=== PATIENT | male | born 1980 | race Caucasian/White ===

== ENCOUNTER 2019-11-25 16:12 | Emergency (ER) | payer SELFPAY ==
[2019-11-25 16:18] VITALS: BP 142/87; PULSE 86; RESP 16; TEMP 36.6; O2SAT 99; BMI 22.5
--- NOTE | 2019-11-25 16:37 | CTR_ITS ---
PROCEDURE INFORMATION: Exam: CT Maxillofacial Without Contrast Exam date and time: 11/25/2019 5:02 PM Age: 39 years old Clinical indication: Face pain; Additional info: Maxiallry , right pain TECHNIQUE: Imaging protocol: Computed tomography images of the face without contrast. Total DLP: 577.11 mGy-cm Radiation optimization: All CT scans at this facility use at least one of these dose optimization techniques: automated exposure control; mA and/or kV adjustment per patient size (includes targeted exams where dose is matched to clinical indication); or iterative reconstruction. COMPARISON: No relevant prior studies available. FINDINGS: Orbits: Orbits are normal. Globes are unremarkable. Sinuses: Normal. No air-fluid levels. Bones/joints: Left nasal septal deviation. Dental: Numerous missing maxillary teeth and dental caries. Numerous periapical (radicular) cysts. No visible associated soft tissue swelling or periosteal abscess. Cannot exclude alveolitis. Soft tissues: Left maxillary sinus inclusion cyst versus mucosal polyp dimensions 21 mm x [address]/CT sinus wo con* [id number] IMPRESSION: 1. Numerous missing maxillary teeth and dental caries. 2. Numerous periapical cysts. 3. Cannot exclude maxillary alveolitis. 4. Left maxillary sinus inclusion cyst versus mucosal polyp. 5. No visible active paranasal sinus disease. Radiation Dose CTDIVOL = (mGy): DLP = 577.11 (mGy-cm)
--- NOTE | 2019-11-25 16:38 | W.ED.GENADLT ---
Documented by User: RK Ledezma 11/25/19 16:40 HPI - General Adult General: Chief complaint: Headache Stated complaint: throwing up Time Seen by Provider: 11/25/19 16:28 History of Present Illness: HPI narrative: Patient with a history of migraines. Has had a headache for the last 6 weeks. Does not respond to Tylenol or Excedrin Migraine. Wakes up with a headache goes to bed with a headache. Also has maxillary tenderness on that right side where his headache is. Has multiple dental caries teeth are were down does have vomiting the last week or 2 with diarrhea also at times MD complaint: Headache Onset (ago): week(s) Location: right Radiation: non-radiation Severity: moderate Severity scale (1-10): 5 Quality: aching Pain Consistency: intermittent Relieving factors: none Exacerbating factors: none Associated symptoms: Reports headache(s) (History of migraines), nausea, vomiting and other (Sinus pain); Deny chest pain, dyspnea or rash Review of Systems Const: Denies: fever, chills or body aches Eyes: Denies: change in vision or blurry vision ENMT: Denies: throat pain or nasal congestion Card: Denies: chest pain or shortness of breath on exertion Resp: Denies: shortness of breath, productive cough or non-productive cough GI: Reports: nausea and vomiting : Denies: difficulty urinating Musc: Denies: extremity pain Skin/Breast: Denies: rash Neuro: Reports: headache (History of migraines) Psych: Denies: anxiety or depression Vu/Lymph: Denies: easy bruising PFSH ED PFSH: Social History Smoking and tobacco status: current every day smoker Physical Exam Const: COMMON NORMALS: no apparent distress, average body habitus and oriented x3 HENMT: COMMON NORMALS: normocephalic, external ears normal and TM's normal bilaterally HEAD & SCALP: normal to inspection and normocephalic FACE & SINUS: other (Right-sided maxillary tenderness) EXTERNAL EAR: Yes external ears normal TYMPANIC MEMBRANE: TM's normal bilaterally MOUTH: other (Teeth are wore down) Eye: COMMON NORMALS: conjunctivae normal GENERAL EYE: normal appearance of both eyes CONJUNCTIVA: Yes conjunctivae normal Neck/C-Spine: COMMON NORMALS: no JVD Chest: COMMONS NORMALS: inspection of chest normal Resp: COMMON NORMALS: normal respiratory effort and clear to auscultation bilaterally AUSCULTATION: clear to auscultation bilaterally Cardio: COMMON NORMALS: no JVD, regular rate and regular rhythm RATE: regular rate RHYTHM: regular rhythm GI: COMMON NORMALS: normal to inspection, nondistended, normoactive bowel sounds Extremity: COMMON NORMALS: normal to inspection and full ROM Neuro: COMMON NORMALS: oriented x3 Course Vital Signs: Vital signs: Vital Signs Temperature 97.9 F 11/25/19 16:18 Pulse Rate 86 11/25/19 16:18 Respiratory Rate 16 11/25/19 16:18 Blood Pressure 142/87 11/25/19 16:18 Pulse Oximetry 99 11/25/19 16:18 [facility] - General Adult Lab Data: Labs: Lab Results 11/25/19 11/25/19 Range/Units 16:56 16:56 WBC 12.6 H (4.0-10.0) 10^3/ uL RBC 4.83 (4.1-5.3) 10^6/u L Hgb 14.2 (11.7-16.6) g/dL Hct 42.3 (42.0-52.0) % MCV 87.6 (80-94) fL MCH 29.4 (28.0-34.0) pg MCHC 33.6 (30.0-36.0) g/dL RDW 13.5 (12.1-15.1) % Plt Count 310 (130-400) 10^3/c mm MPV 9.7 (7.4-10.4) fL Neut % (Auto) 47.4 % Lymph % (Auto) 39.8 % Sebastian % (Auto) 8.1 % Eos % (Auto) 3.8 % Baso % (Auto) 0.6 % Neut # (Auto) 6.0 (1.8-7.7) 10^3/u L Lymph # (Auto) 5.0 H (0.8-4.8) 10^3/u L Sebastian # (Auto) 1.0 H (0.2-0.9) 10^3/u L Eos # (Auto) 0.5 (0.0-0.8) 10^3/u L Baso # (Auto) 0.1 (0.0-0.1) 10^3/u L Nucleated RBC % (a uto) 0 % Nucleated RBCs # 0.0 /100WBC Sodium 138 (136-145) mmol/L Potassium 4.0 (3.5-5.1) mmol/L Chloride 100 (98-107) mmol/L Carbon Dioxide 25 (22-29) mmol/L Anion Gap 17.0 (5-19) BUN 17 (6-20) mg/dL Creatinine 1.1 (0.7-1.2) mg/dL GFR Calculation 74.1 L (90-130) mL/min Glucose 115 (65-115) mg/dL Calcium 9.6 (8.5-10.5) mg/dL Total Bilirubin 0.5 (0.15-1.2) mg/dL AST 27 (0-40) U/L ALT 18 (0-41) U/L Alkaline Phosphata se 55 (40-130) IU/L Total Protein 7.1 (6.6-8.7) g/dL Albumin 4.6 (3.5-5.2) g/dL Globulin 2.5 (1.3-4.6) g/dL Discharge Plan Discharge Patient Disposition: Home, Self-Care Clinical Impression: Dental caries Headache Qualifiers: Headache type: unspecified Headache chronicity pattern: acute headache Condition: Stable Prescriptions: New penicillin V potassium 500 mg tablet 500 mg PO Q6H 7 Days Qty: 28 RF: 0 No Action Excedrin Migraine 250-250-65 mg Tablet 1 tab PO Q6H PRN (Reason: Pain) RF: 0 Discharge Orders: Discharge Order (Routine); Ordered 11/25/19 Ordered By: Natalya Cowan Stand Alone Forms: Work/School Release Sign Out Sign Out Data: Patient Sign Out occurred on 11/25/19 at 17:04. Patient's care was discussed, and care was transferred from to CHALINO Fraser. Coding Level of Care Code ED Lacquer Spray Booth Operator for Chg Fwd Exam Comprehensive Documented by User: CHALINO Fraser 11/25/19 18:47 HPI - General Adult General: Chief complaint: Headache Stated complaint: throwing up Time Seen by Provider: 11/25/19 16:28 [facility] ED PFSH: Social History Smoking and tobacco status: current every day smoker Course Vital Signs: Vital signs: Vital Signs Temperature 97.9 F 11/25/19 16:18 Pulse Rate 86 11/25/19 16:18 Respiratory Rate 16 11/25/19 16:18 Blood Pressure 142/87 11/25/19 16:18 Pulse Oximetry 99 11/25/19 16:18 MDM - General Adult MDM Narrative: Medical decision making narrative: Care assumed from RK Au. Patient presents to ED today with complaints of right-sided facial pain and headache. Pending CT head and sinuses. Patient CT head was normal. CT sinus does not show any active sinus disease however patient does have extensive dental disease. He is currently trying to get into a dentist. Will place patient on antibiotics and give him dental resources to help with this. Lab Data: Labs: Lab Results 11/25/19 11/25/19 Range/Units 16:56 16:56 WBC 12.6 H (4.0-10.0) 10^3/ uL RBC 4.83 (4.1-5.3) 10^6/u L Hgb 14.2 (11.7-16.6) g/dL Hct 42.3 (42.0-52.0) % MCV 87.6 (80-94) fL MCH 29.4 (28.0-34.0) pg MCHC 33.6 (30.0-36.0) g/dL RDW 13.5 (12.1-15.1) % Plt Count 310 (130-400) 10^3/c mm MPV 9.7 (7.4-10.4) fL Neut % (Auto) 47.4 % Lymph % (Auto) 39.8 % Sebastian % (Auto) 8.1 % Eos % (Auto) 3.8 % Baso % (Auto) 0.6 % Neut # (Auto) 6.0 (1.8-7.7) 10^3/u L Lymph # (Auto) 5.0 H (0.8-4.8) 10^3/u L Sebastian # (Auto) 1.0 H (0.2-0.9) 10^3/u L Eos # (Auto) 0.5 (0.0-0.8) 10^3/u L Baso # (Auto) 0.1 (0.0-0.1) 10^3/u L Nucleated RBC % (a uto) 0 % Nucleated RBCs # 0.0 /100WBC Sodium 138 (136-145) mmol/L Potassium 4.0 (3.5-5.1) mmol/L Chloride 100 (98-107) mmol/L Carbon Dioxide 25 (22-29) mmol/L Anion Gap 17.0 (5-19) BUN 17 (6-20) mg/dL Creatinine 1.1 (0.7-1.2) mg/dL GFR Calculation 74.1 L (90-130) mL/min Glucose 115 (65-115) mg/dL Calcium 9.6 (8.5-10.5) mg/dL Total Bilirubin 0.5 (0.15-1.2) mg/dL AST 27 (0-40) U/L ALT 18 (0-41) U/L Alkaline Phosphata se 55 (40-130) IU/L Total Protein 7.1 (6.6-8.7) g/dL Albumin 4.6 (3.5-5.2) g/dL Globulin 2.5 (1.3-4.6) g/dL Imaging Data^: CT Head: Radiologist's impression: [place] [address] CT Scan Report Signed Patient: Víctor Floyd JR Unit #: [id number] : 1980 Age/Sex: 39 / M ADM Date: 11/25/19 Loc: ER Room/Bed: Attending Dr: Ordering Provider/Ordering MD: Tammy Morgan , [facility] Date of Service: 11/25/19 Procedure(s): CT head wo con* [id number] Accession Number(s): [id number] Report Number: [id number] PROCEDURE INFORMATION: Exam: CT Head Without Contrast Exam date and time: 11/25/2019 5:02 PM Age: 39 years old Clinical indication: Pain; Other: Nausea; Headache; Additional info: AWAN x 6 weeks, nausea TECHNIQUE: Imaging protocol: Computed tomography of the head without contrast. Total DLP: 877.99 mGy-cm Radiation optimization: All CT scans at this facility use at least one of these dose optimization techniques: automated exposure control; mA and/or kV adjustment per patient size (includes targeted exams where dose is matched to clinical indication); or iterative reconstruction. COMPARISON: No relevant prior studies available. FINDINGS: Brain: Normal. No hemorrhage. Unremarkable white matter. No mass effect. Ventricles: Normal. No ventriculomegaly. Bones/joints: Unremarkable. No acute fracture. Sinuses: No fluid levels. Very mild mucosal thickening of the ethmoid air cells, right greater the left, without evidence for active disease. Mastoid air cells: Visualized mastoid air cells are well aerated. Soft tissues: Unremarkable. CT/CT head wo con* [id number] IMPRESSION: No acute intracranial abnormality. Radiation Dose CTDIVOL = (mGy): DLP = 877.99 (mGy-cm) Dictated By: Mansoor Hyatt Signed By: Mansoor Hyatt Signed Date/Time: 11/25/191813 DD/ 11 Discharge Plan Discharge Patient Disposition: Home, Self-Care Clinical Impression: Dental caries Headache Qualifiers: Headache type: unspecified Headache chronicity pattern: acute headache Condition: Stable Prescriptions: New penicillin V potassium 500 mg tablet 500 mg PO Q6H 7 Days Qty: 28 RF: 0 No Action Excedrin Migraine 250-250-65 mg Tablet 1 tab PO Q6H PRN (Reason: Pain) RF: 0 Discharge Orders: Discharge Order (Routine); Ordered 11/25/19 Ordered By: Natalya Cowan Stand Alone Forms: Work/School Release Sign Out Sign Out Data: Patient Sign Out occurred on 11/25/19 at 17:04. Patient's care was discussed, and care was transferred from to CHALINO Fraser. Coding Level of Care Code ED Lacquer Spray Booth Operator for g Fwd Exam Comprehensive
[2019-11-25 17:07] LABS: Basophils # 0.1 10^3/uL (0.0-0.1); Basophils % 0.6 %; Eosinophils # 0.5 10^3/uL (0.0-0.8); Eosinophils % 3.8 %; Hematocrit 42.3 % (42.0-52.0); Hemoglobin 14.2 g/dL (11.7-16.6); Lymphocytes % 39.8 %; Mean Corpuscular HGB Conc 33.6 g/dL (30.0-36.0); Mean Corpuscular Hemoglobin 29.4 pg (28.0-34.0); Mean Corpuscular Volume 87.6 fL (80-94); Mean Platelet Volume 9.7 fL (7.4-10.4); Monocytes % 8.1 %; Neutrophils % 47.4 %; Nucleated Red Blood Cells % 0 %; Platelet Count 310 10^3/cmm (130-400); Red Blood Count 4.83 10^6/uL (4.1-5.3); Red Cell Distribution Width 13.5 % (12.1-15.1); White Blood Count 12.6 10^3/uL (4.0-10.0)
[2019-11-25 17:20] LABS: Alanine Aminotransferase 18 U/L (0-41); Albumin Level 4.6 g/dL (3.5-5.2); Alkaline Phosphatase 55 IU/L (40-130); Aspartate Amino Transferase 27 U/L (0-40); Blood Urea Nitrogen 17 mg/dL (6-20); Calcium 9.6 mg/dL (8.5-10.5); Carbon Dioxide 25 mmol/L (22-29); Chloride 100 mmol/L (98-107); Globulin 2.5 g/dL (1.3-4.6); Glomerular Filtration Rate 74.1 mL/min (90-130); Glucose 115 mg/dL (65-115); Sodium 138 mmol/L (136-145); Total Bilirubin 0.5 mg/dL (0.15-1.2); Total Protein 7.1 g/dL (6.6-8.7)
[2019-11-25 19:09] VITALS: BP 148/75; PULSE 76; RESP 18; O2SAT 98
== END 2019-11-25 19:10 | disposition home or self-care (01) ==
PROVIDERS: Nurse Practitioner Family; Emergency Provider Physician Assistant
DX: R51 Headache (principal); K02.9 Dental caries, unspecified; F17.210 Nicotine dependence, cigarettes, uncomplicated
CPT/HCPCS: 12345; 36415; 70450; 70486; 80053; 85025; 99281; 99283

== ENCOUNTER → 2024-12-30 09:20 | Outpatient (BNVA) | payer MEDICAID, SELFPAY | PROVIDERS: Visit Provider Nurse Practitioner | DX: F41.9 Anxiety disorder, unspecified (principal); R06.00 Dyspnea, unspecified; R53.83 Other fatigue; R60.9 Edema, unspecified | CPT/HCPCS: 71046; 80053; 80061; 82306; 82746; 83880; 84402; 84403; 84443; 85025 ==

== ENCOUNTER → 2025-01-06 09:33 | Outpatient (BNVA) | payer MEDICAID, SELFPAY | PROVIDERS: PCP Nurse Practitioner; Referring Provider Nurse Practitioner; Visit Provider Nurse Practitioner | DX: R79.89 Other specified abnormal findings of blood chemistry (principal) | CPT/HCPCS: 84402; 84403 ==

== ENCOUNTER 2025-03-01 15:30 | Emergency (ER) | payer MEDICAID, SELFPAY ==
--- NOTE | 2025-03-01 15:42 | CT_ITS ---
WS: [id number] CT HEAD NONCONTRAST HISTORY: Symptoms of acute stroke TECHNIQUE: Contiguous axial imaging performed through the brain. Bone and soft tissue windows. Sagittal and coronal reformats reviewed. All CT scans at [facility] use at least one of these dose optimization techniques: automated exposure control; mA and/or kV adjustment per patient size (includes targeted exams where dose is matched to clinical indication); or iterative reconstruction. DLP: 1080.85 mGy COMPARISON: 11/25/2019 No acute intracranial hemorrhage, midline shift or mass effect. No atrophy or prior infarcts or herniation. Ventricles: Normal size with no hydrocephalus. Mild ectopia of the cerebellar tonsils. Paranasal sinuses: As visualized are clear. Mastoid air cells: Well pneumatized. Calvarium and scalp: Skull is intact with no soft tissue edema or swelling. CT/CT head thrombolytic [id number] IMPRESSION: Negative head CT. Notified Isidoro Fair DO at 03/01/2025 3:58 PM.
--- NOTE | 2025-03-01 15:42 | ECG_ITS ---
[facility] Test Date: 2025-03-01 Pat Name: Víctor Floyd Department: Room: Gender: Male Special Duty Nurse: : 1980 Requested By: Isidoro Tim Order Number: [id number] Gregorio MD: Padma Gamez M.D. Measurements Intervals [place] Rate: 100 P: 68 GA: 163 QRS: 52 QRSD: 100 T: 58 QT: 332 QTc: 428 Interpretive Statements SINUS TACHYCARDIA POSSIBLE LEFT ATRIAL ENLARGEMENT [-0.1mV P-WAVE IN V1/V2] ABNORMAL RHYTHM ECG No previous ECG available for comparison Electronically Signed On 03-03-2025 22:08:05 CDT by Padma Gamez M.D. [id number]
--- NOTE | 2025-03-01 15:47 | W.ED.NEUROSD ---
HPI - Neuro Symptoms/Deficit General: Chief Complaint: Neuro Symptoms/Deficit Stated Complaint: dizzy, unbalanced, L leg numbness, slurred speech Time Seen by Provider: 03/01/25 15:42 History of Present Illness: 44-year-old male presents emergency room dizziness left leg numbness. Stroke alert was called from triage from the scene and patient he says he has left leg numbness for the last week it is on his left lower leg in the top of his foot. He has had back problems in the past. Feels like it is worsened today. Report from the triage visit that he was unbalanced and had slurred speech and dizzy when anything patient he was having no symptoms other than the left leg. He has a NIH of 0 Associated symptoms: Deny chest pain Related Data Home Medications ?Medication ?Instructions ?Recorded ?Confirmed ibuprofen 200 mg tablet 600 mg PO Q6H PRN Pain 12/30/24 03/01/25 buprenorphine HCl 8 mg sublingual 8 mg sublingual DAILY 03/01/25 03/01/25 tablet cholecalciferol (vitamin D3) 50 50 mcg PO DAILY 03/01/25 03/01/25 mcg (2,000 unit) tablet (Vitamin D3) mecobalamin (vitamin B12) 1,000 1,000 mcg PO DAILY 03/01/25 03/01/25 mcg chewable tablet (B12 Active) omega 1-lwz-rgi-fish oil 60 mg-90 1 cap PO TID 03/01/25 03/01/25 mg-500 mg capsule (Fish Oil) potassium chloride 8 mEq 8 meq PO DAILY 03/01/25 03/01/25 tablet,extended release turmeric 400 mg capsule 400 mg PO BID 03/01/25 03/01/25 zinc acetate 50 mg (zinc) capsule 50 mg PO DAILY 03/01/25 03/01/25 Previous Rx's ?Medication ?Instructions ?Recorded albuterol sulfate 90 mcg/actuation 2 puff inhalation Q6H PRN 12/30/24 aerosol inhaler (Ventolin HFA) shortness of breath or wheezing #8.5 grams clindamycin HCl 300 mg capsule 300 mg PO BID #20 caps 02/23/25 (Cleocin HCl) meclizine 25 mg tablet 25 mg PO QID PRN dizziness #20 tabs 03/01/25 Allergies Allergy/AdvReac Type Severity Reaction Status Date / Time No Known Allergies Allergy Verified 02/23/25 09:05 Review of Systems Const: Denies: fever(s) or chills Card: Denies: chest pain Resp: Denies: dyspnea GI: Denies: abdominal pain : Denies: dysuria, urinary frequency or urinary urgency Musc: Denies: neck pain or back pain Skin/Breast: Denies: rash PFSH ED PFSH: Family History Sister Cancer x2 Mother Chronic kidney disease (CKD) Diabetes Father Heart disease Stroke Daughter Thyroid disease Social History Smoking and tobacco/nicotine status: current every day tobacco/nicotine user cigarettes Packs smoked per day: 1 Alcohol intake: never Substance/Drug Use: never NIH stroke score NIHSS: Level Of Consciousness - 1a: 0 Level Of Consciousness Questions - 1b: Both Correct Level Of Consciousness Commands - 1c: Both Correct Best Gaze - 2: Normal Visual Johnson - 3: No Visual Loss Facial Palsy - 4: Normal Motor Arm Right - 5: No Drift Motor Arm Left - 5: No Drift Motor Leg Right - 6: No Drift Motor Leg Left - 6: No Drift Limb Ataxia - 7: Absent Sensory - 8: Normal Best Language - 9: No Aphasia Dysarthia - 10: Normal Extinction And Inattention - 11: 0 Score: Total Score: 0 Physical Exam Const: GENERAL APPEARANCE: cooperative ORIENTATION/CONSCIOUSNESS: Yes awake, Yes oriented to person, Yes oriented to place and Yes oriented to time HENMT: COMMON NORMALS: normocephalic, atraumatic and hearing grossly normal bilaterally HEAD & SCALP: normocephalic and atraumatic Resp: COMMON NORMALS: normal respiratory effort, No retractions, No use of accessory muscles and clear to auscultation bilaterally AUSCULTATION: clear to auscultation bilaterally Cardio: COMMON NORMALS: regular rate, regular rhythm and No murmurs present (Cardio) RATE: regular rate RHYTHM: regular rhythm GI: COMMON NORMALS: Soft to palpation and No hepatosplenomegaly present AUSCULTATION: Yes normoactive bowel sounds PALPATION: Yes Soft to palpation, No Tenderness to palpation present (GI), No Guarding due to palpation present (GI) and Yes No hepatosplenomegaly present Extremity: COMMON NORMALS: normal to inspection, capillary refill normal, no clubbing, cyanosis or edema, no calf tenderness and no pedal edema Neuro: SENSORIUM/ORIENTATION: Yes oriented to person, Yes oriented to place and Yes oriented to time OTHER: Deep tendon reflexes +2/4 in the lower at the patellar tendon sensation lower extremities equal normal bilaterally no deficits. Skin: COMMON NORMALS: no rashes or lesions noted GENERAL SKIN EXAM: no rashes or lesions noted Course Vital Signs: Vital signs: Vital Signs Pulse Rate 75 03/01/25 16:43 Respiratory Rate 18 03/01/25 16:43 Blood Pressure 113/71 03/01/25 16:43 Pulse Oximetry 93 03/01/25 16:43 Oxygen Delivery Me thod Room Air 03/01/25 16:05 MDM - Neuro Symptoms/Deficit Medical Decision Making No sign of CVA CT head negative. Neuroexam shows no deficits. He is having some dizziness intermittently this been going on for 2 weeks has not noticed any triggers. Will start him on some meclizine. His leg discomfort has resolved at this time he has no focal neurologic deficits no radicular symptoms at the time of exam strength and sensation bilaterally and normal in the lower extremities discharge him home in the meclizine if dizziness persist follow-up with primary care will refer to orthopedic spine surgery for his left leg radicular pain Medical Records I reviewed the patient's medical records. Lab Data I reviewed the patient's lab results. 03/01/25 16:04 03/01/25 16:[address] 03/01/25 15:42 IMPRESSION: Negative head CT. Notified Isidoro Fair DO at 03/01/2025 3:58 PM. Laboratory Results WBC 15.93 10^3/uL (3.29-11.43) H 03/01/25 16:04 RBC 4.74 10^6/uL (3.85-5.65) 03/01/25 16:04 Hgb 14.20 g/dL (11.27-16.99) 03/01/25 16:04 Hct 42.5 % (37-53) 03/01/25 16:04 MCV 89.7 fl (82-101) 03/01/25 16:04 MCH 30.0 pg (27-33) 03/01/25 16:04 MCHC 33.4 g/dL (30-55) 03/01/25 16:04 RDW 14.0 % (12.1-15.1) 03/01/25 16:04 Plt Count 323 10^3/cmm (157-399) 03/01/25 16:04 MPV 9.6 fL (7.4-10.4) 03/01/25 16:04 Neut % (Auto) 72.5 % 03/01/25 16:04 Lymph % (Auto) 18.0 % 03/01/25 16:04 [facility] % (Auto) 7.7 % 03/01/25 16:04 Eos % (Auto) 0.9 % 03/01/25 16:04 Baso % (Auto) 0.5 % 03/01/25 16:04 Neut # (Auto) 11.55 10^3/uL (1.8-7.7) H 03/01/25 16:04 Lymph # (Auto) 2.9 10^3/uL (0.8-4.8) 03/01/25 16:04 [facility] # (Auto) 1.2 10^3/uL (0.2-0.9) H 03/01/25 16:04 Eos # (Auto) 0.1 10^3/uL (0.0-0.8) 03/01/25 16:04 Baso # (Auto) 0.1 10^3/uL (0.0-0.1) 03/01/25 16:04 Nucleated RBC % (auto) 0 % 03/01/25 16:04 Nucleated RBCs # 0.0 /100WBC 03/01/25 16:04 PT 13.30 SECONDS (12.1-14.9) 03/01/25 16:04 INR 0.94 (0.8-1.2) 03/01/25 16:04 APTT 26.2 SECONDS (23.9-36.7) 03/01/25 16:04 Sodium 141 mmol/L (136-145) 03/01/25 16:04 Potassium 4.1 mmol/L (3.5-5.1) 03/01/25 16:04 Chloride 104 mmol/L (98-107) 03/01/25 16:04 Carbon Dioxide 24 mmol/L (22-29) 03/01/25 16:04 Anion Gap 17.1 (5-19) 03/01/25 16:04 BUN 12 mg/dL (6-20) 03/01/25 16:04 Creatinine 0.7 mg/dL (0.7-1.2) 03/01/25 16:04 GFR Calculation 122.0 mL/min (90-130) 03/01/25 16:04 Glucose 92 mg/dL (65-115) 03/01/25 16:04 POC Glucose 113 mg/dL (70-110) H 03/01/25 15:52 Calculated Osmolality 291 mOsm/kg (285-295) 03/01/25 16:04 Calcium 9.2 mg/dL (8.5-10.5) 03/01/25 16:04 Total Bilirubin 0.3 mg/dL (0.15-1.2) 03/01/25 16:04 AST 13 U/L (0-40) 03/01/25 16:04 ALT 12 U/L (0-41) 03/01/25 16:04 Alkaline Phosphatase 60 U/L (40-130) 03/01/25 16:04 Total Protein 7.1 g/dL (6.6-8.7) 03/01/25 16:04 Albumin 4.6 g/dL (3.5-5.2) 03/01/25 16:04 Globulin 2.5 g/dL (1.3-4.6) 03/01/25 16:04 Urine Color Yellow (Yellow) 03/01/25 16:27 Urine Appearance Clear (CLEAR) 03/01/25 16:27 Urine pH 5.5 (5-7) 03/01/25 16:27 Ur Specific [place] 1.027 (1.005-1.030) 03/01/25 16:27 Urine Protein Trace (Negative) A 03/01/25 16:27 Urine Glucose (UA) Negative (Normal) 03/01/25 16: Urine Ketones Trace (Negative) 03/01/25 16:27 Urine Blood Negative (Negative) 03/01/25 16:27 Urine Nitrate Negative (Negative) 03/01/25 16:27 Urine Bilirubin Negative (Negative) 03/01/25 16:27 Urine Urobilinogen 1.0 mg/dL (Negative) 03/01/25 16:27 Ur Leukocyte Esterase Negative (Negative) 03/01/25 16:27 Urine RBC 3-5 /hpf (0-2) 03/01/25 16:27 Urine WBC 0-5 /hpf (0-5) 03/01/25 16:27 Ur Squamous Epith Cells 0-5 /hpf (0-5) 03/01/25 16:27 Amorphous Sediment Not Reportable 03/01/25 16:27 Urine Bacteria None seen /hpf (NONE) 03/01/25 16:27 Hyaline Casts 1.21 /lpf 03/01/25 16:27 Urine Opiates Screen Negative ng/mL (Negative) 03/01/25 16:27 Ur Barbiturates Screen Negative ng/mL (Negative) 03/01/25 16:27 Ur Phencyclidine Scrn Negative ng/mL (Negative) 03/01/25 16:27 Ur Amphetamines Screen Negative ng/mL (Negative) 03/01/25 16:27 U Benzodiazepines Scrn Negative ng/mL (Negative) 03/01/25 16:27 Urine Cocaine Screen Negative ng/mL (Negative) 03/01/25 16:27 U Marijuana (THC) Screen Positive ng/mL (Negative) H 03/01/25 16:27 All radiology interpretation(s) finalized by discharge Discharge Plan Discharge Patient Disposition: Home Clinical Impression: Radicular pain of left lower extremity, Dizziness Condition: Stable Prescriptions: New meclizine 25 mg tablet 25 mg PO QID PRN (Reason: dizziness) Qty: 20 0RF No Action ibuprofen 200 mg tablet 600 mg PO Q6H PRN (Reason: Pain) clindamycin HCl [Cleocin HCl] 300 mg capsule 300 mg PO BID Qty: 20 0RF albuterol sulfate [Ventolin HFA] 90 mcg/actuation HFA aerosol inhaler 2 puff inhalation Q6H PRN (Reason: shortness of breath or wheezing) Qty: 8.5 0RF zinc acetate 50 mg (zinc) Capsule 50 mg PO DAILY potassium chloride 8 mEq Tablet Extended Release 8 meq PO DAILY buprenorphine HCl 8 mg Tablet, Sublingual 8 mg SUBLINGUAL DAILY cholecalciferol (vitamin D3) [Vitamin D3] 50 mcg (2,000 unit) Tablet 50 mcg PO DAILY omega 7-hkm-viy-fish oil [Fish Oil] 60-90-500 mg Capsule 1 cap PO TID turmeric 400 mg Capsule 400 mg PO BID mecobalamin (vitamin B12) [B12 Active] 1,000 mcg Tablet,Chewable 1,000 mcg PO DAILY Discharge Orders: Discharge ED (Routine); Ordered 03/01/25 Ordered By: Isidoro Fair Referrals: Keiry Conde FNP [Primary Care Provider, Nurse Practitioner] Discharge Diet: Usual diet Discharge Activity: Increase activity as tolerated Patient Instructions: Opioid Safety, Pain Management Activity Restrictions/Additional Instructions: Thank you for choosing [facility] for your healthcare needs today. It is very important that you follow up as instructed or that you return to the Emergency Department should you have concerns or if your condition changes or worsens in any way. You are seen in the emergency room complaining of dizziness as well as intermittent left leg pain and numbness. Your exam for stroke was negative CT of your head was negative. Your chemistry panel was normal there is a slight increase in your white count but no signs of infection. Your vital signs are otherwise stable. Some of your symptoms may be related to the buprenorphine. You are given meclizine to use as needed. If your symptoms persist follow-up with your primary care doctor. Print Language: French Coding Level of Care Code ED Machine Sweeper Brush Maker for Jason Hensley
[2025-03-01 15:56] LABS: Glucose Point of Care 113 mg/dL (70-110)
[2025-03-01 16:05] VITALS: BP 130/80; PULSE 90; RESP 16; O2SAT 93
[2025-03-01 16:13] LABS: Basophils # 0.1 10^3/uL (0.0-0.1); Basophils % 0.5 %; Eosinophils # 0.1 10^3/uL (0.0-0.8); Eosinophils % 0.9 %; Hematocrit 42.5 % (37-53); Lymphocytes # 2.9 10^3/uL (0.8-4.8); Mean Corpuscular HGB Conc 33.4 g/dL (30-55); Mean Corpuscular Volume 89.7 fl (82-101); Mean Platelet Volume 9.6 fL (7.4-10.4); Monocytes # 1.2 10^3/uL (0.2-0.9); Monocytes % 7.7 %; Neutrophils # 11.55 10^3/uL (1.8-7.7); Neutrophils % 72.5 %; Nucleated Red Blood Cells % 0 %; Platelet Count 323 10^3/cmm (157-399); Red Blood Count 4.74 10^6/uL (3.85-5.65); White Blood Count 15.93 10^3/uL (3.29-11.43)
[2025-03-01 16:24] LABS: INR 0.94 (0.8-1.2)
[2025-03-01 16:25] LABS: Partial Thromboplastin Time 26.2 SECONDS (23.9-36.7)
[2025-03-01 16:43] VITALS: BP 113/71; PULSE 75; RESP 18; O2SAT 93
[2025-03-01 16:47] LABS: Alanine Aminotransferase 12 U/L (0-41); Albumin Level 4.6 g/dL (3.5-5.2); Alkaline Phosphatase 60 U/L (40-130); Anion Gap 17.1 (5-19); Aspartate Amino Transferase 13 U/L (0-40); Blood Urea Nitrogen 12 mg/dL (6-20); Calcium 9.2 mg/dL (8.5-10.5); Carbon Dioxide 24 mmol/L (22-29); Chloride 104 mmol/L (98-107); Creatinine Clr Calc Pharmacy 164.8559; Globulin 2.5 g/dL (1.3-4.6); Glucose 92 mg/dL (65-115); Osmolality Calculated 291 mOsm/kg (285-295); Potassium 4.1 mmol/L (3.5-5.1); Sodium 141 mmol/L (136-145); Total Bilirubin 0.3 mg/dL (0.15-1.2); Total Protein 7.1 g/dL (6.6-8.7)
[2025-03-01 16:47] LABS: Bilirubin Urine Negative (Negative); Blood Urine Negative (Negative); Glucose Urine UA Negative (Normal); Ketones Urine Trace (Negative); Leukocyte Esterase Urine Negative (Negative); Nitrate Urine Negative (Negative); Protein Urine Trace (Negative); Specific Gravity, Urine 1.027 (1.005-1.030); Urine Appearance Clear (CLEAR); Urine Color Yellow (Yellow); pH Urine 5.5 (5-7)
[2025-03-01 16:52] LABS: Add Urine Microscopic? YES; Bacteria Urine None Seen /hpf; Hyaline Casts Urine 1.21 /lpf; Squamous Epithelial Cell Urine 0-5 /hpf (0-5); WBC Urine 0-5 /hpf (0-5)
[2025-03-01 16:54] LABS: Amphetamines Screen Urine Negative (Negative); Barbiturates Screen Urine Negative (Negative); Benzodiazepines Screen Urine Negative (Negative); Cocaine Screen Urine Negative (Negative); Opiate Screen Urine Negative (Negative); PCP Screen Urine Negative (Negative); THC Screen Urine Positive (Negative)
[2025-03-01 17:03] LABS: Add Urine Culture? No
--- NOTE | 2025-03-04 08:06 | DCPLANNER ---
messaged ortho for er f/u
== END 2025-03-01 17:47 | disposition home or self-care (01) ==
PROVIDERS: Emergency Provider Family Medicine; PCP Nurse Practitioner
DX: M54.10 Radiculopathy, site unspecified (principal); R42 Dizziness and giddiness; R47.81 Slurred speech; F17.210 Nicotine dependence, cigarettes, uncomplicated
CPT/HCPCS: 36415; 36416; 70450; 80053; 80306; 81001; 82962; 85025; 85610; 85730; 93005; 99284

== ENCOUNTER → 2025-08-03 10:53 | Outpatient (BNVA) | payer MEDICAID, SELFPAY | PROVIDERS: PCP Nurse Practitioner; Visit Provider Nurse Practitioner | DX: M79.645 Pain in left finger(s) (principal) | CPT/HCPCS: 73130 ==

== ENCOUNTER → 2025-08-12 11:00 | Outpatient (BNVA) | payer MEDICAID, SELFPAY | PROVIDERS: PCP Nurse Practitioner; Visit Provider Nurse Practitioner | DX: Z01.818 Encounter for other preprocedural examination (principal) | CPT/HCPCS: 80053; 85025 ==

== ENCOUNTER 2025-08-18 12:43 | Outpatient (CLI) | payer MEDICAID, SELFPAY ==
--- NOTE | 2025-08-18 12:49 | USCV_ITS ---
Víctor Floyd Age: 44 Gender: M : 1980 Exam Date: 08/18/2025 13:02 Ordering Phys: Keiry CondeP [employer] Technologist: Exam Location: [facility] [place] Indication: cp sob BP: 120 / 75 HR: 76 Rhythm: Sinus Technical Quality: Adequate MEASUREMENTS (Male / Female) Normal Values 2D ECHO LV Diastolic Diameter PLAX 5.5 cm 4.2 - 5.9 / 3.9 - 5.3 cm IVS Diastolic Thickness 1.1 cm 0.6 - 1.0 / 0.6 - 0.9 cm IVS Systolic Thickness 1.5 cm LVPW Diastolic Thickness 1.6 cm 0.6 - 1.0 / 0.6 - 0.9 cm LVPW Systolic Thickness 1.8 cm LVOT Diameter 2.1 cm LV Ejection Fraction 2D Teich 65.5 % LV Ejection Fraction MOD 4C 72.3 % LV Ejection Fraction MOD 2C 68.6 % LV Ejection Fraction 2C AL 69.2 % LA Diameter 3.3 cm RA Systolic Volume 4C AL 34.5 ml RA Systolic Volume 4C MOD 29.2 ml Aorta at Sinotubular Diameter 2.3 cm IVC Diameter 1.9 cm M-MODE LA Ao Ratio MM 0.9 AV Cusp Separation MM 3.0 cm DOPPLER AV Peak Velocity 109.0 cm/s LVOT Peak Velocity 106.0 cm/s AV Area Cont Eq vti 4.7 cm squared AV Area Cont Eq pk 3.3 cm squared MV Peak Velocity 98.0 cm/s MV Area PHT 3.5 cm squared Mitral E to A Ratio 1.1 TR Peak Velocity 84.0 cm/s TR Peak Gradient 2.8 mmHg PV Peak Velocity 98.0 cm/s FINDINGS Left Ventricle Normal left ventricular size, systolic function and wall thickness, with no regional wall motion abnormalities. Left ventricular ejection fraction is estimated at 65 %. Right Ventricle Normal right ventricular size and systolic function. Right Atrium Normal right atrial size. Left Atrium Normal left atrial size. IA Septum Normal interatrial septum. Mitral Valve Structurally normal mitral valve. Trace mitral valve regurgitation. Aortic Valve Structurally normal trileaflet aortic valve. No aortic valve stenosis. Tricuspid Valve Structurally normal tricuspid valve. Trace tricuspid valve regurgitation. TVPG = 9 mmHg. Normal right heart and pulmonary pressures. Pulmonic Valve Structurally normal pulmonic valve. Trace pulmonary valve regurgitation. Pericardium No pericardial effusion. Aorta Normal size aortic root and proximal ascending aorta. IVC Normal inferior vena cava. CONCLUSIONS Normal left ventricle size and systolic function. LVEF is normal 65%. Normal RV size and RV systolic function. Normal right and left atria. No significant valvular abnormality noted. Normal right heart and pulmonary pressures. Randi Pavon MD (Electronically Signed) Final Date: 18 August 2025 16:00 S
== END 2025-08-18 12:44 | disposition home or self-care (01) ==
LOC: RAD 12:44
PROVIDERS: PCP Nurse Practitioner; Visit Provider Nurse Practitioner
DX: R06.00 Dyspnea, unspecified (principal); R07.9 Chest pain, unspecified; R06.02 Shortness of breath
CPT/HCPCS: 93306

== ENCOUNTER → 2025-09-02 09:25 | Outpatient (BNVA) | payer MEDICAID, SELFPAY | PROVIDERS: PCP Nurse Practitioner; Visit Provider Nurse Practitioner | DX: E34.9 Endocrine disorder, unspecified (principal) | CPT/HCPCS: 84402; 84403 ==